=== PATIENT | male | born 1970 | race Caucasian/White ===

== ENCOUNTER 2019-06-26 06:46 | Day surgery (SDC) | payer OTHER ==
[~2019-06-26] VITALS: Ht 182.9 cm; Wt 87.1 kg
[2019-06-26] MEDS ORDERED: LR 1000ml 1,000 ML IVLG SCH ×2 (07:00→07:40)
[2019-06-26] MEDS ORDERED: MERCAPTOPURINE50 MG PO (07:30)
[2019-06-26] MEDS ORDERED: LIALDA1.2 GM ORAL (07:31)
[2019-06-26 07:43] VITALS: BP 115/70
--- NOTE | 2019-06-26 07:43 | Anethesia Preoperative Eval ---
Anesthesia Pre-op PMH/ROS General Date of Evaluation: Jun 26, 2019 Time of Evaluation: 07:41 Anesthesiologist: merrick ASA Score: ASA 2 Mallampati Score Class I : Soft palate, uvula, fauces, pillars visible Class II: Soft palate, uvula, fauces visible Class III: Soft palate, base of uvula visible Class IV: Only hard plate visible Mallampati Classification: Class II Surgeon: estela Diagnosis: abdominal pain Surgical Procedure: colonoscopy Anesthesia History: none Social History: smoking - nonsmoker Family History: no anesthesia problems Allergies: Coded Allergies: MILK (Verified Adverse Reaction, Intermediate, upset stomach, 06/26/19) Medications: see eMAR Patient NPO?: Yes Past Medical History Gastrointestinal/Genitourinary: Reports: other - ulceratvie coloitis HEENT: Reports: other - decreased visual acuity Anesthesia Pre-op Phys. Exam Physician Exam Last Vital Signs Date Time Temp Pulse Resp B/P (MAP) Pulse Ox O2 Delivery O2 Flow Rate FiO2 06/26/19 07:45 Room Air 06/26/19 07:43 97.9 57 18 115/70 97 Constitutional: NAD Neurologic: CN 2-12 intact Cardiovascular: RRR Respiratory: CTA Gastrointestinal: S/NT/ND Airway Exam Mallampati Score: Class II MO: full Neck: flexible TMD: 2fb ROM: full Anesthesia Pre-op A/P Risk Assessment & Plan Assessment: asa2 Plan: mac Status Change Before Surgery: No Pre-Antibiotics Drug: Mahogany Sol MD Jun 26, 2019 07:43
[2019-06-26] MEDS ORDERED: Midazolam 2mg/2ml Inj IVP PRN (07:45)
[2019-06-26] MEDS ORDERED: DiphenhydrAMINE 50mg/ml Inj IVP PRN (07:45)
[2019-06-26] MEDS ORDERED: fentaNYL 100 mcg/2 mL IV PRN (07:45)
[2019-06-26] MEDS ORDERED: Atropine Inj 1mg/10ml Syr IV PRN (07:45)
[2019-06-26] MEDS ORDERED: LR 1000ml ONE (08:00)
[2019-06-26] MEDS ORDERED: Lidocaine 1% MPF 10mg/ml 5ml ONE (08:00)
[2019-06-26] MEDS ORDERED: Propofol 200mg/20ml IV ONE (08:00)
--- NOTE | 2019-06-26 08:17 | Short Stay Surgery H&P ---
History of Present Illness History of Present Illness Chief Complaint See typed H&P. HPI Jeronimo Irby is a 48 year old male who was admitted on for Abdominal Pain Patient History Allergies: Coded Allergies: MILK (Verified Adverse Reaction, Intermediate, upset stomach, 06/26/19) Medication History Scheduled Mercaptopurine (Mercaptopurine), 125 MG PO DAILY, (Reported) Mesalamine (Lialda), 4.8 GM ORAL DAILY, (Reported) Physical Exam Vital Signs Last Vital Signs Date Time Temp Pulse Resp B/P (MAP) Pulse Ox O2 Delivery O2 Flow Rate FiO2 06/26/19 07:45 Room Air 06/26/19 07:43 97.9 57 18 115/70 97 Plan Attestation Are the patient's medical conditions optimized for surgery? Roe Marie MD Jun 26, 2019 08:17
--- NOTE | 2019-06-26 08:18 | Pre-Procedure Note/Attestation ---
Pre-Procedure Note/Attestation Complete Prior to Procedure Planned Procedure: not applicable Procedure Narrative: colonoscopy Indications for Procedure Pre-Operative Diagnosis: UC Attestation I attest that I discussed the nature of the procedure; its benefits; risks and complications; and alternatives (and the risks and benefits of such alternatives ), prior to the procedure, with the patient (or the patient's legal freight representative). I attest that, if there was a reasonable possibility of needing a blood transfusion, the patient (or the patient's legal freight representative) was given the [facility] standardized written summary, pursuant to the [place] Blood Safety Act ([place] Health and Safety Code # 1645, as amended). I attest that I re-evaluated the patient just prior to the surgery and that there has been no change in the patient's H&P, except as documented below: Roe Marie MD Jun 26, 2019 08:18
[2019-06-26 09:00] VITALS: BP 144/71
[2019-06-26 09:05] VITALS: BP 132/69
--- NOTE | 2019-06-26 09:15 | Immediate Post-Op Evaluation ---
Immediate Post-Op Evalulation Immediate Post-Op Evalulation Procedure: colonoscopy w/bx Date of Evaluation: Jun 26, 2019 Time of Evaluation: 09:12 IV Fluids: 350ml lr Blood Products: none Estimated Blood Loss: negligible Blood Pressure Systolic: 144 Blood Pressure Diastolic: 71 Pulse Rate: 55 Respiratory Rate: 18 O2 Sat by Pulse Oximetry: 100 Temperature (Fahrenheit): 97.2 Pain Score (1-10): 0 Nausea: No Vomiting: No Complications none Patient Status: awake, reacts, patent Hydration Status: adequate Drug: Mahogany Sol MD Jun 26, 2019 09:14
[2019-06-26 09:16] VITALS: BP 122/67
--- NOTE | 2019-06-26 09:16 | 48 Hour Post Anesthesia Eval ---
Post Anesthesia Evaluation Procedure: colonoscopy w/bx Date of Evaluation: Jun 26, 2019 Time of Evaluation: 09:15 Blood Pressure Systolic: 144 0: 71 Pulse Rate: 55 Respiratory Rate: 18 Temperature (Fahrenheit): 97.2 O2 Sat by Pulse Oximetry: 100 Airway: patent Nausea: No Vomiting: No Pain Intensity: 0 Hydration Status: adequate Cardiopulmonary Status: stable Mental Status/LOC: patient returned to baseline Post-Anesthesia Complications: none Follow-up care needed: N/A Mahogany Sauceda MD Jun 26, 2019 09:16
[2019-06-26 09:30] VITALS: BP 116/58
[2019-06-26 09:45] VITALS: BP 114/60
--- NOTE | 2019-06-26 21:51 | Brief Operative Note ---
Immediate Post Operative Note Operative Note Pre-op Diagnosis: UC Specimen: yes Complications: none Condition: stable Fluids: per anesthesia Implant(s) used?: No Roe Marie MD Jun 26, 2019 21:51
--- NOTE | 2019-06-26 21:51 | Endoscopy Procedure Note ---
Endoscopy Procedure Note General Indication for Procedure: UC Procedures Performed: colonoscopy Operative Findings/Diagnosis: quite colitis Anesthesia Anesthesiologist: Lefty Soto Anesthesia: moderate sedation Inserted Devices Implant(s) used?: No GI Core Measures 50 yrs or older w/o bx or poly: Not Applicable 10yrs. F/U recommended: Not Applicable If not recommended, why?: Roe Marie MD Jun 26, 2019 21:51
--- NOTE | 2019-06-26 23:15 | Operative Note - Dictated ---
DATE OF OPERATION: 06/26/2019 GASTROENTEROLOGY PROCEDURE NOTE PROCEDURE: Colonoscopy with biopsy. SURGEON: Roe Marie M.D. ANESTHESIA: Please see the separate anesthesiologist notes for details. PRE-ENDOSCOPIC DIAGNOSIS: Longstanding history of ulcerative colitis. POST-ENDOSCOPIC DIAGNOSES: 1. Normal terminal ileum for about 10 cm, status post biopsy. 2. Normal colonic mucosa with normal vascularity of the colonic mucosa throughout the colon. 3. Scattered small pseudopolyps seen in the right and left colon, status post biopsy. 4. Status post random biopsies at 10 cm intervals, starting from 80 cm to the rectum. DESCRIPTION OF PROCEDURE: The procedure, its risks, indications, alternatives, and possible complications were explained and informed consent was obtained. The rectal exam was done. The diagnostic colonoscope was introduced into the rectum and advanced to the terminal ileum. The colonoscope was then gradually withdrawn and the mucosa examined carefully. Biopsies of the findings were as listed above. The patient was left to recovery in good condition. COMPLICATIONS: None. RECOMMENDATIONS: 1. Follow up biopsy results. 2. Outpatient followup. Roe Marie M.D. DR: ROSE MARIE JOB#: [id number] CC: Roe Marie M.D.; Fax#: [phone] [facility]
== END 2019-06-26 09:57 | disposition home or self-care (01) ==
LOC: GAS 06:46
DX: K51.90 Ulcerative colitis, unspecified, without complications (principal); R10.9 Unspecified abdominal pain; Z91.011 Allergy to milk products
CPT/HCPCS: 45380; J2704; J7120; 94003; 94150